=== PATIENT | male | born 2000 | race Two or more races ===

== ENCOUNTER 2022-04-05 20:38 | Emergency (ER) | payer SELFPAY ==
[~2022-04-05] VITALS: Ht 175.3 cm; Wt 65.8 kg
--- NOTE | 2022-04-05 21:33 | NUR ---
pt in room 4a pt states he has something in the right eye.
--- NOTE | 2022-04-05 21:41 | NUR ---
Dr. Kidd at bedside for MSE.
[2022-04-05] MEDS ORDERED: FLUORESCEIN SODIUM 1 MG STRIP ONE (21:43)
[2022-04-05] MEDS ORDERED: FLUORESCEIN SODIUM 1 MG STRIP OP ONE (21:45)
[2022-04-05] MEDS ORDERED: TETRACAINE HCL 0.5% OPHT DROP 2 ML BOTTLE OP ONE (21:45)
[2022-04-05] MEDS ORDERED: HYDR-3980 PO (21:58)
[2022-04-05] MEDS ORDERED: CIPR5DRO RIGHTEYE (21:58)
[2022-04-05 22:24] VITALS: BP 120/82
--- NOTE | 2022-04-05 22:24 | NUR ---
Patient discharged to home in stable condition. Written and verbal after care instructions given. Patient verbalizes understanding of instructions. Stressed follow up or return to ER for worsening s/s.
== END 2022-04-05 22:24 | disposition home or self-care (01) ==
LOC: ER 20:43
DX: H10.9 Unspecified conjunctivitis (principal)
CPT/HCPCS: A4663